=== PATIENT | male | born 1975 | race Caucasian/White ===

== ENCOUNTER → 2019-05-05 | Outpatient (CLI) | payer OTHER ==
--- NOTE | 2019-05-05 15:45 | PCVCIMAG ---
APPROVED REPORT Patient Location: Echo lab Room #: Stress Nurse: Isidra Hansen RN Treadmill Stress Test Indications- chest pain, dyspnea The patient exercised according to the ANH protocol for 13:10 mins; achieving a work level of 17.2 METS. The resting heart rate of 71 bpm russel to a maximum heart rate of 187 bpm. This value represent 104% of the maximal, age-predicted heart rate. The resting blood pressure of 130/86 mmHg, russel to a maximum blood pressure of 148/76 mmHg. The exercise test was stopped due to fatigue and maximal effort. No chest pain symptoms. Conclusion 1. Subjectively negative for ischemia 2. Electrocardiographically negative for ischemia 3. Satisfactory functional capacity
--- NOTE | 2019-05-05 15:46 | PCVCIMAG ---
APPROVED REPORT Study performed: 05/05/2019 12:57:20 EXAM: Comprehensive 2D, Doppler, and color-flow Echocardiogram Patient Location: Echo lab Status: routine BSA: 2.08 HR: 74 bpmBP: 130/86 mmHg Rhythm: NSR Other Information Study Quality: Adequate Indications Dyspnea Chest Pain 2D Dimensions IVSd: 10.69 (7-11mm) LVDd: 43.32 mm PWd: 10.59 (7-11mm) LVDs: 30.97 (25-40mm) Left Atrium: 33.05 (27-40mm) Aortic Root: 30.36 mm LV Single Plane 4CH: 62.17 % LV Single Plane 2CH: 63.42 % Biplane EF: 63.6 % Volumes Left Atrial Volume (Systole) Single Plane 4CH: 48.02 mLSingle Plane 2CH: 64.41 mL LA ESV Index: 27.00 mL/m2 Aortic Valve AoV Peak Salvador.: 1.41 m/s AO Peak Gr.: 7.95 mmHgLVOT Max P.30 mmHg LVOT Max V: 1.15 m/s Mitral Valve E/A Ratio: 1.6 MV Decel. Time: 195.79 ms MV E Max Salvador.: 0.83 m/s MV A Salvador.: 0.51 m/s IVRT: 107.27 ms Pulmonary Valve PV Peak Salvador.: 1.13 m/sPV Peak Gr.: 5.13 mmHg Pulmonary Vein P Vein S: 0.29 m/sP Vein A: 0.27 m/s P Vein D: 0.37 m/sP Vein A Dur.: 124.6 msec P Vein S/D Ratio: 0.78 Tricuspid Valve TR Peak Salvador.: 2.44 m/s TR Peak Gr.: 23.76 mmHg TV Vmax: 0.57 m/s Left Ventricle The left ventricle is normal size. There is normal LV segmental wall motion. There is normal left ventricular wall thickness. Left ventricular systolic function is normal. The left ventricular ejection fraction is within the normal range. LVEF is 60-65%. The left ventricular diastolic function is normal. Right Ventricle The right ventricle is normal size. The right ventricular systolic function is normal. Atria The left atrium size is normal. The right atrium size is normal. Aortic Valve The aortic valve is normal in structure. No aortic regurgitation is present. There is no aortic valvular stenosis. Mitral Valve The mitral valve is normal in structure. Trace mitral regurgitation. No evidence of mitral valve stenosis. Tricuspid Valve The tricuspid valve is normal in structure. Trace tricuspid regurgitation with PAP of 31 mmHg. Pulmonic Valve The pulmonary valve is normal in structure. Trace pulmonic regurgitation. Great Vessels The aortic root is normal in size. IVC is normal in size and collapses >50% with inspiration. Pericardium There is no pericardial effusion. There is no pleural effusion. <Conclusion> The left ventricle is normal size. LVEF is 60-65%. The aortic valve is normal in structure. The mitral valve is normal in structure. Trace mitral regurgitation. The tricuspid valve is normal in structure. Trace tricuspid regurgitation with PAP of 31 mmHg. The pulmonary valve is normal in structure. Trace pulmonic regurgitation. There is no pericardial effusion. There is no pleural effusion.
== END | disposition home or self-care (01) ==
LOC: PCVCIMAG 12:49
PROVIDERS: ATTEND Family Medicine
DX: R07.9 Chest pain, unspecified (principal); R06.00 Dyspnea, unspecified
CPT/HCPCS: 93017; 93306